=== PATIENT | male | born 1955 | race Caucasian/White ===

== ENCOUNTER 2016-10-25 15:09 | Inpatient (IN) | payer OTHER ==
[~2016-10-25] VITALS: Ht 185.4 cm; Wt 122.7 kg
[2016-10-25 18:00] VITALS: BP 144/74; PULSE 65; RESP 20
[2016-10-25 19:28] VITALS: BP 148/78; RESP 17
[2016-10-25 20:07] VITALS: Ht 185.4 cm; Wt 122.7 kg
[2016-10-25 20:15] VITALS: PULSE 62
[2016-10-25] MEDS ORDERED: HEPARIN 1000 UNITS/ML 10 ML INJ IV PRN (20:30)
[2016-10-25] MEDS: INSULIN ASPART [NOVOLOG] 3 ML PEN SC SCH (21:00)
[2016-10-25] MEDS ORDERED: HYDROCODONE/APAP (5/325) TAB PO PRN (21:30)
[2016-10-25] MEDS ORDERED: GLUCOSE GEL 15 GRAM TUBE BUCCAL PRN (22:00)
[2016-10-25] MEDS ORDERED: GLUCAGON 1 MG INJ IM PRN (22:00)
[2016-10-25] MEDS ORDERED: DEXTROSE 50% 50 ML SYRINGE IV PRN ×2 (22:00)
[2016-10-25] MEDS ORDERED: GLUCOSE GEL 15 GRAM TUBE PO PRN ×2 (22:00)
[2016-10-25 22:02] LABS: ADD SCAN DIFF NO
[2016-10-25 22:04] LABS: BASOPHILS % 0.6 % (0.0-2.0); EOSINOPHILS # 0.2 10^3/ul (0.0-0.5); HEMATOCRIT 42.6 % (42.0-52.0); HEMOGLOBIN 14.5 g/dl (14.0-18.0); LYMPHOCYTES # 1.5 10^3/ul (0.8-2.9); LYMPHOCYTES % 29.8 % (15.0-51.0); MEAN CORPUSCULAR HEMOGLOBIN 28.8 pg (29.0-33.0); MEAN CORPUSCULAR VOLUME 84.5 fl (82.0-101.0); MEAN PLATELET VOLUME 9.1 fl (7.4-10.4); MONOCYTE # 0.4 10^3/ul (0.3-0.9); MONOCYTES % 7.8 % (0.0-11.0); NEUTROPHIL # 2.9 10^3/ul (1.6-7.5); NEUTROPHILS % 58.4 % (39.0-77.0); PLATELET COUNT 189 10^3/UL (140-415); RED BLOOD COUNT 5.04 10^6/ul (4.70-6.10); RED CELL DISTRIBUTION WIDTH 13.2 % (11.5-14.5)
[2016-10-25 22:19] LABS: INR 0.94; PROTIME 12.6 Sec (12.2-14.2)
[2016-10-25 22:20] LABS: MAGNESIUM 2.1 mg/dl (1.7-2.5)
[2016-10-25] MEDS: LISINOPRIL 20 MG TAB PO SCH (22:26)
[2016-10-25] MEDS: FERROUS SULFATE (EC) 325 MG TAB PO SCH (22:26)
[2016-10-25] MEDS: DOCUSATE SODIUM 100 MG CAP PO SCH (22:26)
[2016-10-25 22:33] LABS: TROPONIN-I 0.038 ng/ml (0.00-0.12)
[2016-10-25 22:36] LABS: PARTIAL THROMBOPLASTIN TIME 35.4 Sec (25.0-35.0)
[2016-10-25 22:38] LABS: CK-MB 0.47 ng/ml (0.0-2.4)
[2016-10-25] MEDS: HEPARIN 25000 UNITS/250 ML 250 ML IV SCH (22:42)
[2016-10-25] MEDS ORDERED: ZOLPIDEM 5 MG TAB PO ONE (23:30)
[2016-10-26] VITALS (13 sets, daily range): BP systolic 122–148; BP diastolic 63–77; PULSE 61–85; RESP 17–20
[2016-10-26] MEDS: ACCU-CHEK XX SCH ×2 (02:00)
[2016-10-26] MEDS ORDERED: FERR325T5 PO (05:14)
[2016-10-26] MEDS ORDERED: CARV6.25 PO (05:14)
[2016-10-26] MEDS ORDERED: LISI20TA11 PO (05:14)
[2016-10-26] MEDS ORDERED: ASPI325T32 PO (05:15)
[2016-10-26] MEDS ORDERED: AMLO-145 PO (05:15)
[2016-10-26] MEDS ORDERED: HYDR-3671 PO (05:15)
[2016-10-26] MEDS ORDERED: DOCU-144 PO (05:15)
[2016-10-26] MEDS ORDERED: GLIP5TAB13 PO (05:15)
[2016-10-26] MEDS ORDERED: OMEP20CA16 PO (05:15)
[2016-10-26] MEDS ORDERED: METF850T PO (05:15)
[2016-10-26] MEDS: PANTOPRAZOLE (EC) 40 MG TAB PO SCH (05:53)
[2016-10-26 07:18] LABS: CK-MB 0.45 ng/ml (0.0-2.4); TROPONIN-I 0.034 ng/ml (0.00-0.12)
[2016-10-26] MEDS: HEPARIN 25000 UNITS/250 ML 250 ML IV SCH ×3 (07:26→22:57)
--- NOTE | 2016-10-26 08:06 | CONS ---
Date/Time of Note Date/Time of Note DATE: 10/26/16 TIME: 07:57 Assessment/Plan Assessment/Plan Chief Complaint/Hosp Course NSTEMI/ACS: Presented with chest pain and trops elevated to 0.25 at [facility]. He will need a cardiac cath for evaluation of his coronaries. CAD: Has prior stents from 2009 HTN -continue heparin drip -ASA -add lipitor 40mg -coreg 6.25mg BID -add imdur until after catyh -lisinopril 20mg -amlodipine 5mg -NPO after midnight for cath in am (possibly 7:30) Problems: Consultation Date/Type/Reason Admit Date/Time Oct 25, 2016 at 19:12 Date of Consultation: Oct 26, 2016 Type of Consultation: Cardiology Reason for Consultation NSTEMI Referring Provider: JOSE ALBERTO PATEL MD Hx of Present Illness 61 yo M with a h/o CAD s/p PCI to unknown vessels 2009 (per pt 3 stents, 2 weeks apart), HTN, prior tobacco use (quit 8 yrs ago), who [facility] to [facility] with [facility] 2 nights ago. There he was found to have an NSTEMI with trops peaking at 0.25 and downtrended (have been normal here). The pain started suddenly while he was playing on his computer. The pain was substernal and radiated to his left axilla. He had recurrence of the pain at [facility] but none since being here. He takes ASA without issues and has not had bleeding issues in the past.No SOB, orthopnea, PND, edema. He is agreeable to cardiac cath. per HPI Past Medical History per HPI Social History Smoking Status: Former smoker Exam/Review of Systems Vital Signs Vitals Vital Signs Date Time Temp Pulse Resp B/P Pulse Ox O2 Delivery O2 Flow Rate FiO2 10/26/16 04:56 64 10/26/16 03:45 97.6 17 140/75 99 10/25/16 18:00 Room Air Intake and Output 10/25/16 10/25/16 10/26/16 15:00 23:00 07:00 Intake Total 420 ml Balance 420 ml Exam Constitutional: alert, oriented Psych: no complaints Head: atraumatic, normocephalic Eyes: nl conjunctiva ENMT: nl external ears & nose Neck: jvd (7cm), supple Respiratory: clear to auscultation, No crackles/rales Cardiovascular: regular rate and rhythm, No edema, No systolic murmur Gastrointestinal: non-tender, soft Extremities: normal pulses Neurological: nl mental status, nl speech Results EKG: sinus, anterolateral and inferior TWI (unclear if new or old) Result Diagram: 10/25/16 2141 Results 24 hrs Laboratory Tests Test 10/25/16 20:43 10/25/16 21:47 10/26/16 05:45 Bedside Glucose 116 White Blood Count 5.0 Red Blood Count 5.04 Hemoglobin 14.5 Hematocrit 42.6 Mean Corpuscular Volume 84.5 Mean Corpuscular Hemoglobin 28.8 L Mean Corpuscular Hemoglobin Concent 34.0 Red Cell Distribution Width 13.2 Platelet Count 189 Mean Platelet Volume 9.1 Neutrophils % 58.4 Lymphocytes % 29.8 Monocytes % 7.8 Eosinophils % 3.0 Basophils % 0.6 Nucleated Red Blood Cells % 0.0 Neutrophils # 2.9 Lymphocytes # 1.5 Monocytes # 0.4 Eosinophils # 0.2 Basophils # 0.0 Nucleated Red Blood Cells # 0.0 Prothrombin Time 12.6 Prothrombin Time Ratio 1.0 INR International Normalized Ratio 0.94 Activated Partial Thromboplast Time 35.4 H 35.3 H Magnesium Level 2.1 Creatine Kinase 59 47 Creatine Kinase Index 0.8 1.0 Creatinine Kinase MB (Mass) 0.47 0.45 Troponin I 0.038 0.034 Medications Medications Current Medications Ferrous Sulfate (Ferrous Sulfate (Ec)) 325 mg TID PO Last administered on 22:26; Admin Dose 325 MG; Start 10/25/16 at 21:00 Lisinopril (Zestril) 20 mg BID PO Last administered on 10/25/16 22:26; Admin Dose 20 MG; Start 10/25/16 at 21:00 Carvedilol (Coreg) 6.25 mg BID PO Last administered on 10/25/16 22:26; Admin Dose 6.25 MG; Start 10/25/16 at 21:00 Amlodipine Besylate (Norvasc) 5 mg DAILY PO ; Start 10/26/16 at 09:00 Aspirin (Aspirin) 325 mg DAILY PO ; Start 10/26/16 at 09:00 Docusate Sodium (Colace) 100 mg BID PO Last administered on 10/25/16 22:26; Admin Dose 100 MG; Start 10/25/16 at 21:00 Hydralazine HCl (Apresoline) 25 mg DAILY PO ; Start 10/25/16 at 21:00 Diagnostic Test (Pha) (Accu-Chek) 1 ea 02 XX ; Start 10/26/16 at 02:00 Diagnostic Test (Pha) (Accu-Chek) 1 ea 02 XX ; Start 10/26/16 at 02:00 Acetaminophen/ Hydrocodone Bitart ([place] (5/325)) 1 tab Q6H PRN PO PAIN; Start 10/25/16 at 21:30 Miscellaneous Information 1 ea NOTE XX ; Start 10/25/16 at 22:00 Glucose (Glutose) 15 gm Q15M PRN PO DECREASED GLUCOSE; Start 10/25/16 at 22:00 Glucose (Glutose) 22.5 gm Q15M PRN PO DECREASED GLUCOSE; Start 10/25/16 at 22: 00 Dextrose (D50w Syringe) 25 ml Q15M PRN IV DECREASED GLUCOSE; Start 10/25/16 at 22:00 Dextrose (D50w Syringe) 50 ml Q15M PRN IV DECREASED GLUCOSE; Start 10/25/16 at 22:00 Glucagon (Glucagen) 1 mg Q15M PRN IM DECREASED GLUCOSE; Start 10/25/16 at 22:00 Glucose (Glutose) 15 gm Q15M PRN BUCCAL DECREASED GLUCOSE; Start 10/25/16 at 22 :00 Pantoprazole (Protonix Tab) 40 mg DAILY@06 PO Last administered on 10/26/16 05 :53; Admin Dose 40 MG; Start 10/26/16 at 06:00 Atorvastatin Calcium (Lipitor) 40 mg HS PO ; Start 10/26/16 at 21:00 DAVID SANTOS Oct 26, 2016 08:06
[2016-10-26] MEDS: INSULIN ASPART [NOVOLOG] 3 ML PEN SC SCH ×4 (08:49→21:00)
[2016-10-26] MEDS: DOCUSATE SODIUM 100 MG CAP PO SCH ×2 (08:50→21:11)
[2016-10-26] MEDS: FERROUS SULFATE (EC) 325 MG TAB PO SCH ×3 (08:50→21:11)
[2016-10-26] MEDS: LISINOPRIL 20 MG TAB PO SCH ×2 (08:51→21:00)
[2016-10-26] MEDS: AMLODIPINE 5 MG TAB PO SCH (08:52)
[2016-10-26] MEDS ORDERED: ASPIRIN 325 MG TAB PO SCH (09:00)
[2016-10-26] MEDS ORDERED: ISOSORBIDE MONONITRATE(SR)30 MG TAB PO SCH (09:00)
[2016-10-26] MEDS: ACETAMINOPHEN 325 MG TAB PO PRN ×2 (11:41→20:54)
--- NOTE | 2016-10-26 12:31 | PN ---
Date/Time of Note Date/Time of Note DATE: 10/26/16 TIME: 12:29 Assessment/Plan VTE Prophylaxis VTE Prophylaxis Intervention: heparin Lines/Catheters IV [facility]ter Type [facility] Peripheral IV Urinary Cath still in place: No Assessment/Plan Problems: (1) Non-ST elevation (NSTEMI) myocardial infarction Status: Acute Comment: He was transferred to our facility for receiving cardiac catheterization which is scheduled for the morning. Cardiology will be by today to finalize any the orders and make any the preop/preprocedure arrangements such as holding the heparin drip (2) Essential hypertension Status: Chronic Comment: He is normotensive on aggressive medical intervention (3) Hyperlipidemia Status: Chronic Comment: Full dose statin therapy Qualifiers: Hyperlipidemia type: pure hypercholesterolemia Qualified Code: E78.00 - Pure hypercholesterolemia (4) Status post angioplasty with stent Onset Date: ~ 10/2009 Status: Chronic Comment: Noted in the past. (5) History of tobacco use Status: Chronic Comment: Patient reports he quit smoking several years ago Subjective 24 Hr Interval Summary Free Text/Dictation Patient presently on a heparin drip and without complaints of chest pain shortness of breath palpitations etc. Constitutional: no complaints Respiratory: no complaints Cardiovascular: no complaints Gastrointestinal: no complaints Exam/Review of Systems Vital Signs Vitals Vital Signs Date Time Temp Pulse Resp B/P Pulse Ox O2 Delivery O2 Flow Rate FiO2 10/26/16 12:03 74 10/26/16 12:00 97.7 20 125/69 96 10/25/16 18:00 Room Air Intake and Output 10/25/16 10/25/16 10/26/16 15:00 23:00 07:00 Intake Total 420 ml Balance 420 ml Exam Constitutional: alert, oriented Neck: non-tender, supple Respiratory: clear to auscultation, normal air movement Cardiovascular: nl pulses, regular rate and rhythm Results Result Diagram: 10/25/16 2144 Results 24 hrs Laboratory Tests Test 10/25/16 20:43 10/25/16 21:47 10/26/16 05:45 10/26/16 08:00 Bedside Glucose 116 168 White Blood Count 5.0 Red Blood Count 5.04 Hemoglobin 14.5 Hematocrit 42.6 Mean Corpuscular Volume 84.5 Mean Corpuscular Hemoglobin 28.8 L Mean Corpuscular Hemoglobin Concent 34.0 Red Cell Distribution Width 13.2 Platelet Count 189 Mean Platelet Volume 9.1 Neutrophils % 58.4 Lymphocytes % 29.8 Monocytes % 7.8 Eosinophils % 3.0 Basophils % 0.6 Nucleated Red Blood Cells % 0.0 Neutrophils # 2.9 Lymphocytes # 1.5 Monocytes # 0.4 Eosinophils # 0.2 Basophils # 0.0 Nucleated Red Blood Cells # 0.0 Prothrombin Time 12.6 Prothrombin Time Ratio 1.0 INR International Normalized Ratio 0.94 Activated Partial Thromboplast Time 35.4 H 35.3 H Magnesium Level 2.1 Creatine Kinase 59 47 Creatine Kinase Index 0.8 1.0 Creatinine Kinase MB (Mass) 0.47 0.45 Troponin I 0.038 0.034 Test 10/26/16 12:01 Bedside Glucose 161 Medications Medications Current Medications Ferrous Sulfate (Ferrous Sulfate (Ec)) 325 mg TID PO Last administered on 08:50; Admin Dose 325 MG; Start 10/25/16 at 21:00 Lisinopril (Zestril) 20 mg BID PO Last administered on 10/26/16 08:51; Admin Dose 20 MG; Start 10/25/16 at 21:00 Carvedilol (Coreg) 6.25 mg BID PO Last administered on 10/25/16 22:26; Admin Dose 6.25 MG; Start 10/25/16 at 21:00 Amlodipine Besylate (Norvasc) 5 mg DAILY PO Last administered on 10/26/16 08: 52; Admin Dose 5 MG; Start 10/26/16 at 09:00 Aspirin (Aspirin) 325 mg DAILY PO Last administered on 10/26/16 08:49; Admin Dose 325 MG; Start 10/26/16 at 09:00 Docusate Sodium (Colace) 100 mg BID PO Last administered on 10/26/16 08:50; Admin Dose 100 MG; Start 10/25/16 at 21:00 Hydralazine HCl (Apresoline) 25 mg DAILY PO Last administered on 10/26/16 08: 52; Admin Dose 25 MG; Start 10/25/16 at 21:00 Diagnostic Test (Pha) (Accu-Chek) 1 ea 02 XX ; Start 10/26/16 at 02:00 Diagnostic Test (Pha) (Accu-Chek) 1 ea 02 XX ; Start 10/26/16 at 02:00 Acetaminophen/ Hydrocodone Bitart ([place] (5/325)) 1 tab Q6H PRN PO PAIN; Start 10/25/16 at 21:30 Miscellaneous Information 1 ea NOTE XX ; Start 10/25/16 at 22:00 Glucose (Glutose) 15 gm Q15M PRN PO DECREASED GLUCOSE; Start 10/25/16 at 22:00 Glucose (Glutose) 22.5 gm Q15M PRN PO DECREASED GLUCOSE; Start 10/25/16 at 22: 00 Dextrose (D50w Syringe) 25 ml Q15M PRN IV DECREASED GLUCOSE; Start 10/25/16 at 22:00 Dextrose (D50w Syringe) 50 ml Q15M PRN IV DECREASED GLUCOSE; Start 10/25/16 at 22:00 Glucagon (Glucagen) 1 mg Q15M PRN IM DECREASED GLUCOSE; Start 10/25/16 at 22:00 Glucose (Glutose) 15 gm Q15M PRN BUCCAL DECREASED GLUCOSE; Start 10/25/16 at 22 :00 Pantoprazole (Protonix Tab) 40 mg DAILY@06 PO Last administered on 10/26/16 05 :53; Admin Dose 40 MG; Start 10/26/16 at 06:00 Atorvastatin Calcium (Lipitor) 40 mg HS PO ; Start 10/26/16 at 21:00 Isosorbide Mononitrate (Imdur) 30 mg DAILY PO Last administered on 10/26/16 08 :50; Admin Dose 30 MG; Start 10/26/16 at 09:00 Acetaminophen (Tylenol Tab) 650 mg Q6H PRN PO PAIN AND OR ELEVATED TEMP Last administered on 10/26/16 11:41; Admin Dose 650 MG; Start 10/26/16 at 11:30 MARIA ANTONIA HERNÁNDEZ MD Oct 26, 2016 12:31
[2016-10-26 15:04] LABS: CREATINE KINASE 48 IU/L (23-200)
[2016-10-26 15:26] LABS: CK-MB 0.44 ng/ml (0.0-2.4); TROPONIN-I < 0.012 ng/ml (0.00-0.12)
[2016-10-26] MEDS: ATORVASTATIN 40 MG TAB PO SCH (21:11)
[2016-10-26] MEDS: ZOLPIDEM 5 MG TAB PO PRN (22:48)
[2016-10-27] VITALS (58 sets, daily range): BP systolic 133–182; BP diastolic 66–93; PULSE 56–76; RESP 11–29
[2016-10-27] MEDS: ACCU-CHEK XX SCH ×2 (02:00)
[2016-10-27] MEDS: PANTOPRAZOLE (EC) 40 MG TAB PO SCH (06:00)
[2016-10-27] MEDS: HEPARIN 25000 UNITS/250 ML 250 ML IV SCH (07:45)
[2016-10-27] MEDS: INSULIN ASPART [NOVOLOG] 3 ML PEN SC SCH ×4 (08:00→21:00)
--- NOTE | 2016-10-27 08:12 | RADRPT ---
Echocardiogram Report Patient Name: SARIAH ROJAS Gender: Male Date: 1955 Study Date: 26-Oct-2016 Orthopaedic Doctor: [facility] Location: [id number] Ref. Physician: DAVID ANDERSON Quality: Adequate Procedures: Transthoracic echocardiogram with complete 2D, M-Mode, and doppler examination. Indications: NSTEMI. 2D/M Mode Doppler Measurement Value Normal Ranges Measurement Value Normal Ranges LVIDd 2D 5.0 3.5 - 5.6 cm AV Peak Joshua 1.5 m/sec LVIDs 2D 3.3 2.1 - 4.1 cm AV Peak PG 8.9 mmHg LVPWd 2D 1.2 0.6 - 1.1 cm AI Peak PG 40.1 mmHg IVSd 2D 1.2 0.6 - 1.1 cm AI Peak Joshua 3.2 m/sec AoR Diam 2D 3.0 2.0 - 3.7 cm AI PHT 921.6 msec EDV 2D 119.8 cm3 LVOT Peak Joshua 0.8 m/sec ESV 2D 37.1 cm3 LVOT Peak PG 2.3 mmHg LA Dimen 2D 3.9 2.3 - 4.0 cm MV E Peak Joshua 0.6 m/sec MV A Peak Joshua 0.5 m/sec MV E/A 1.1 MV Decel Time 255 msec MV Decel [place] 2 MV E/A 1.1 Findings Left Ventricle: Normal left ventricular systolic function. Normal left ventricular cavity size. Mild concentric left ventricular hypertrophy. Ejection fraction is visually estimated at 55 %. Tissue Doppler/Mitral Doppler indices are within normal limits. Resting Segmental Wall Motion Analysis: Mild hypokinesis of the anterior wall. Right Ventricle: Normal right ventricular size. Normal right ventricular systolic function. Left Atrium: The left atrium is normal in size. Right Atrium: The right atrium is normal in size. Mitral Valve: Normal appearance and function of the mitral valve with trace physiologic regurgitation. Aortic Valve: Aortic sclerosis without stenosis. Mild aortic valve regurgitation. Tricuspid Valve: Normal appearance of the tricuspid valve. Unable to obtain RVSP due to minimal presence of tricuspid regurgitation. Pericardium: Trivial pericardial effusion. Aorta: Normal aortic root. IVC: Normal size and normal respiratory collapse consistent with normal right atrial pressure. Conclusions 1.Normal left ventricular systolic function. Normal left ventricular cavity size. Mild concentric left ventricular hypertrophy. Ejection fraction is visually estimated at 55 %. Tissue Doppler/Mitral Doppler indices are within normal limits. Mild hypokinesis of the anterior wall. 2.Aortic sclerosis without stenosis. Mild aortic valve regurgitation. 3.Unable to obtain RVSP due to minimal presence of tricuspid regurgitation. RA pressure estimated to be 3 mmHg. Electronically Signed By: David Anderson 27-Oct-2016 08:12:07 0700 Patient Name: SARIAH ROJAS Study Date: 26-Oct-2016 [id number]
[2016-10-27 08:36] LABS: ALBUMIN 4.3 g/dl (3.3-4.9); ALBUMIN/GLOBULIN RATIO 1.95; BILIRUBIN,INDIRECT 0.5 mg/dl (0-1.1); BILIRUBIN,TOTAL 0.5 mg/dl (0.2-1.3); CALCIUM 8.8 mg/dl (8.4-10.2); CREATININE 1.03 mg/dl (0.61-1.24); POTASSIUM 3.9 mmol/L (3.5-5.1); TOTAL PROTEIN 6.5 g/dl (6.1-8.1)
[2016-10-27] MEDS ORDERED: VERAPAMIL 5 MG INJ ONE (08:36)
[2016-10-27] MEDS ORDERED: IODIXANOL LOCM 100 ML BTL ONE ×3 (08:36→10:01)
[2016-10-27] MEDS ORDERED: LIDOCAINE 1% (MDV) 20 ML INJ ONE (08:36)
[2016-10-27] MEDS ORDERED: NITROGLYCERIN (IC) 100 MCG/ML INJ ONE (08:37)
[2016-10-27] MEDS ORDERED: HEPARIN 1000 UNITS/ML 10 ML INJ ONE ×2 (08:37→10:07)
[2016-10-27] MEDS ORDERED: FENTAnyl 50 MCG/ML VIAL ONE (08:40)
[2016-10-27] MEDS ORDERED: SOD CHLORIDE 0.9% 500 ML ONE ×2 (08:40→10:07)
[2016-10-27] MEDS ORDERED: MIDAZOLAM 1 MG/ML 2 ML INJ ONE (08:40)
--- NOTE | 2016-10-27 08:40 | CONS ---
Date/Time of Note Date/Time of Note DATE: 10/27/16 TIME: 08:38 Assessment/Plan Assessment/Plan Chief Complaint/Hosp Course NSTEMI/ACS: Presented with chest pain and trops elevated to 0.25 at [facility]. He will need a cardiac cath for evaluation of his coronaries. CAD: Has prior stents from 2009 HTN -cath this am -ASA -lipitor 40mg -coreg 6.25mg BID -imdur until after cath -lisinopril 20mg -amlodipine 5mg Problems: Consultation Date/Type/Reason Admit Date/Time Oct 25, 2016 at 19:12 Initial Consult Date 10/26/16 Type of Consultation: Cardiology Referring Provider: JOSE ALBERTO PATEL MD 24 HR Interval Summary Free Text/Dictation No o/n events. No further chest pain. Exam/Review of Systems Vital Signs Vitals Vital Signs Date Time Temp Pulse Resp B/P Pulse Ox O2 Delivery O2 Flow Rate FiO2 10/27/16 08:13 76 10/27/16 03:08 98.1 20 145/76 95 10/25/16 18:00 Room Air Intake and Output 10/26/16 10/26/16 10/27/16 15:00 23:00 07:00 Intake Total 1200 ml 530 ml Output Total 215 ml 650 ml Balance 985 ml -120 ml Exam Constitutional: alert, oriented Psych: no complaints Head: atraumatic, normocephalic Neck: jvd (7cm) Respiratory: clear to auscultation, No crackles/rales Cardiovascular: edema (trace), regular rate and rhythm, systolic murmur (2/6 SANDRA) Gastrointestinal: non-tender, soft Neurological: nl mental status, nl speech, nl strength Results Result Diagram: 10/25/16 2147 Results 24 hrs Laboratory Tests Test 10/26/16 12:01 10/26/16 14:10 10/26/16 16:04 10/26/16 17:16 Bedside Glucose 161 139 Creatine Kinase 48 Creatine Kinase Index 0.9 Creatinine Kinase MB (Mass) 0.44 Troponin I < 0.012 Thyroid Stimulating Hormone (TSH) 1.800 Hepatitis B Surface Antigen NEGATIVE Hepatitis C Antibody REACTIVE H Activated Partial Thromboplast Time 59.8 H Test 10/26/16 21:09 10/26/16 22:10 10/27/16 07:15 Bedside Glucose 155 Activated Partial Thromboplast Time 54.7 H 74.4 *H Medications Medications Current Medications Ferrous Sulfate (Ferrous Sulfate (Ec)) 325 mg TID PO Last administered on 21:11; Admin Dose 325 MG; Start 10/25/16 at 21:00 Lisinopril (Zestril) 20 mg BID PO Last administered on 10/26/16 08:51; Admin Dose 20 MG; Start 10/25/16 at 21:00 Carvedilol (Coreg) 6.25 mg BID PO Last administered on 10/26/16 21:11; Admin Dose 6.25 MG; Start 10/25/16 at 21:00 Amlodipine Besylate (Norvasc) 5 mg DAILY PO Last administered on 10/26/16 08: 52; Admin Dose 5 MG; Start 10/26/16 at 09:00 Aspirin (Aspirin) 325 mg DAILY PO Last administered on 10/26/16 08:49; Admin Dose 325 MG; Start 10/26/16 at 09:00 Docusate Sodium (Colace) 100 mg BID PO Last administered on 10/26/16 21:11; Admin Dose 100 MG; Start 10/25/16 at 21:00 Hydralazine HCl (Apresoline) 25 mg DAILY PO Last administered on 10/26/16 08: 52; Admin Dose 25 MG; Start 10/25/16 at 21:00 Diagnostic Test (Pha) (Accu-Chek) 1 ea 02 XX ; Start 10/26/16 at 02:00 Diagnostic Test (Pha) (Accu-Chek) 1 ea 02 XX ; Start 10/26/16 at 02:00 Acetaminophen/ Hydrocodone Bitart ([place] (5/325)) 1 tab Q6H PRN PO PAIN; Start 10/25/16 at 21:30 Miscellaneous Information 1 ea NOTE XX ; Start 10/25/16 at 22:00 Glucose (Glutose) 15 gm Q15M PRN PO DECREASED GLUCOSE; Start 10/25/16 at 22:00 Glucose (Glutose) 22.5 gm Q15M PRN PO DECREASED GLUCOSE; Start 10/25/16 at 22: 00 Dextrose (D50w Syringe) 25 ml Q15M PRN IV DECREASED GLUCOSE; Start 10/25/16 at 22:00 Dextrose (D50w Syringe) 50 ml Q15M PRN IV DECREASED GLUCOSE; Start 10/25/16 at 22:00 Glucagon (Glucagen) 1 mg Q15M PRN IM DECREASED GLUCOSE; Start 10/25/16 at 22:00 Glucose (Glutose) 15 gm Q15M PRN BUCCAL DECREASED GLUCOSE; Start 10/25/16 at 22 :00 Pantoprazole (Protonix Tab) 40 mg DAILY@06 PO Last administered on 10/26/16 05 :53; Admin Dose 40 MG; Start 10/26/16 at 06:00 Atorvastatin Calcium (Lipitor) 40 mg HS PO Last administered on 10/26/16 21:11 ; Admin Dose 40 MG; Start 10/26/16 at 21:00 Isosorbide Mononitrate (Imdur) 30 mg DAILY PO Last administered on 10/26/16 08 :50; Admin Dose 30 MG; Start 10/26/16 at 09:00 Acetaminophen (Tylenol Tab) 650 mg Q6H PRN PO PAIN AND OR ELEVATED TEMP Last administered on 10/26/16 20:54; Admin Dose 650 MG; Start 10/26/16 at 11:30 Zolpidem Tartrate (Ambien) 10 mg HS PRN PO INSOMNIA Last administered on 22:48; Admin Dose 10 MG; Start 10/26/16 at 21:30 DAVID SANTOS Oct 27, 2016 08:39
[2016-10-27] MEDS ORDERED: IOHEXOL 350MG/ML 50 ML BTL ONE (09:27)
[2016-10-27] MEDS ORDERED: BIVALIRUDIN 250MG /NS 50 ML 50 ML IVPB ONE ×2 (09:27→10:08)
[2016-10-27] MEDS ORDERED: TICAGRELOR 90 MG TABLET ONE (09:27)
[2016-10-27] MEDS ORDERED: ASPIRIN 81 MG TAB ONE (10:25)
[2016-10-27] MEDS ORDERED: SOD CHLORIDE 0.9% 1,000 ML IV SCH (10:32)
--- NOTE | 2016-10-27 10:53 | OPR ---
Date/Time of Note Date/Time of Note DATE: 10/27/16 TIME: 10:33 Operative Report Free Text/Dictation Procedure Date: 10/27/2016 Procedures Performed: 1)Left heart catheterization with selective left and right coronary angiography. 2)Balloon angioplasty and stenting of the mid LAD with a Synergy 2.5 x 16 drug eluting stent. 2)Balloon angioplasty and stenting of the prox Diag with a Resolute 2.25 x 14 drug eluting stent. Pre-operative Diagnosis:NSTEMI, CAD Post-operative Diagnosis:NSTEMI, CAD, s/p PCI of LAD and diag Indications: Description of Procedure: After informed consent, the patient was brought to the cardiac catheterization lab. The procedure site was prepped and draped in usual manner. The patient was premedicated with versed 1mg and fentanyl 50 mcg. 2 mL lidocaine was injected into the right wrist. Next using the posterior wall technique, the 6/ 5 cook islander sheath was inserted into the right radial artery. Next using the JL3.5 and [place], selective angiography of the left and right coronary arteries were obtained. Hemodynamics were obtained with the JR catheter. The decision was made to proceed with PCI of the LAD and diag. A 6 cook islander XBLAD 3.5 guide was advanced and engaged into the left coronary artery. After appropriate anticoagulation and antiplatelets were given, the BMW angioplasty wire was advanced past the LAD lesion. Next another BMW wire was used to advance into the diagonal branch. Next the 2.0 X 12 balloon was used to dilate the LAD lesion times 2 at a maximum of 10 david. Next an attempt was made to cross a BMW into the small subbranch of the diag with the hope to POBA but after a brief unsuccessful attempt, the decision was made not to (as it was a 1.5mm vessel and could not be stented if dissection occurred). Next the 2.0 X 12 balloon was used to dilate the prox Diag lesion times 2 at a maximum of 8 david. Subsequently, the Resolute 2.25 x 14 drug eluting stent was advanced to the lesion and deployed at nominal pressure. Subsequently, the Synergy 2.5 x 16 drug eluting stent was advanced to the LAD lesion and deployed at 12 david. Next the LAD stent was post dilated with the 2.75 X 8 noncompliant balloon times 4 at a maximum of 16 david. Final angiography revealed MAXINE 3 flow, no edge dissection, and appropriate stent expansion of both stents. The subbranch of the diagonal had appropriate flow and the pt was asymptomatic so it was not intervened upon. Next all equipment was removed and hemostasis was achieved by TR band. Findings: Anatomy/Hemodynamics: Left main:normal LAD:mid stent with 99% ISR Diagonal 1: medium caliber bifurcating vessel with ostial 40% followed by prox 80%, subbranch of the diagonal is ~1.5mm and has an ostial long 99% lesion Circumflex: normal Obtuse marginal: large trifurcating vessel with prox patent stent, very distal subbranch is 1.5mm and has an ostial 80% lesion RCA: prox long 40% PDA: luminal irregularities PLV: luminal irregularities LV angiography:not done LV-Ao: no gradient LVEDP: 15 mmHg Contrast used:280mL Fluoroscopy time:21 min Medications used: Versed 1mg Fentanyl 125mcg Equipment used: 6 cook islander XB LAD 3.5 guide BMW angioplasty wire x 2 2 x 12 balloon Synergy 2.5 x 16 drug eluting stent (mid LAD) Resolute 2.25 x 14 drug eluting stent (prox Diag) 2.75 x 8 noncompliant balloon Assessment: NSTEMI Two vessel severe CAD of the mid LAD (in-stent restenosis) and prox Diag s/p KELY to both Small vessel CAD of subbranches of the Diagonal and OM branches Plan: -observe overnight in ICU -d/c home tomorrow if normal clinical course -ASA 81mg indefinitely -ticagrelor 90mg BID for at least 1 year -continue statin, beta denys, ACEI -f/u 1-2 weeks DAVID SANTOS Oct 27, 2016 10:47
[2016-10-27] MEDS ORDERED: ONDANSETRON 4 MG INJ IV PRN (11:00)
[2016-10-27] MEDS ORDERED: morphine 2 MG INJ IV PRN (11:00)
[2016-10-27] MEDS: ACETAMINOPHEN 325 MG TAB PO PRN ×2 (11:16→23:10)
[2016-10-27] MEDS: AMLODIPINE 5 MG TAB PO SCH (13:05)
[2016-10-27] MEDS: FERROUS SULFATE (EC) 325 MG TAB PO SCH ×3 (13:05→21:02)
[2016-10-27] MEDS: LISINOPRIL 20 MG TAB PO SCH ×2 (13:05→21:02)
[2016-10-27] MEDS: DOCUSATE SODIUM 100 MG CAP PO SCH ×2 (13:06→21:02)
--- NOTE | 2016-10-27 18:33 | PN ---
Date/Time of Note Date/Time of Note DATE: 10/27/16 TIME: 18:30 Assessment/Plan VTE Prophylaxis VTE Prophylaxis Intervention: SCD's Lines/Catheters IV Catheter Type (from [facility]): Peripheral IV Urinary Cath still in place: No Assessment/Plan Chief Complaint/Hosp Course Assessment and plan 1. Non-ST elevated myocardial infarction. Patient status post heart catheterization with noted 2 vessel disease status post stent in LAD and proximal diagonal. Continue on aspirin and Brilinta. Continue on statin medication. Monitor on telemetry for now. 2. Essential hypertension. Continue antihypertensives and adjust as needed 3. Dyslipidemia. Continue on statin medication 4. History of tobacco use. Cessation was advised. Disposition and plan: Continue on Brilinta and aspirin. Monitor on telemetry for now. Anticipate discharge within the next 24 hours. Will follow up with fuel cell engineer. Discussed plan of care with Dr. Ramey Problems: Subjective 24 Hr Interval Summary Free Text/Dictation Reports having little chest discomfort at this time Exam/Review of Systems Vital Signs Vitals Vital Signs Date Time Temp Pulse Resp B/P Pulse Ox O2 Delivery O2 Flow Rate FiO2 10/27/16 17:03 64 22 144/81 97 Room Air Nasal Cannula 10/27/16 10:53 98.6 Intake and Output 10/26/16 10/26/16 10/27/16 15:00 23:00 07:00 Intake Total 1200 ml 530 ml Output Total 215 ml 650 ml Balance 985 ml -120 ml Exam Constitutional: alert, obese, oriented Psych: no complaints Head: normocephalic Eyes: nl conjunctiva Neck: supple, No jvd Respiratory: clear to auscultation, normal air movement Cardiovascular: other Gastrointestinal: non-tender (Regular rate), soft Musculoskeletal: nl extremities to inspection Extremities: normal pulses Neurological: RESPIRATORY CARE FACULTY II-XII intact, nl mental status, nl speech Skin: nl turgor Results Result Diagram: 10/25/16 2147 10/27/16 0715 Results 24 hrs Laboratory Tests Test 10/26/16 21:09 10/26/16 22:10 10/27/16 07:15 10/27/16 10:56 Bedside Glucose 155 178 Activated Partial Thromboplast Time 54.7 H 74.4 *H Sodium Level 136 Potassium Level 3.9 Chloride Level 102 Carbon Dioxide Level 25 Anion Gap 13 Blood Urea Nitrogen 16 Creatinine 1.03 Glucose Level 151 Calcium Level 8.8 Total Bilirubin 0.5 Direct Bilirubin 0.00 Indirect Bilirubin 0.5 Aspartate Amino Transf (AST/SGOT) 22 Alanine Aminotransferase (ALT/SGPT) 50 Alkaline Phosphatase 60 Total Protein 6.5 Albumin 4.3 Globulin 2.20 Albumin/Globulin Ratio 1.95 Test 10/27/16 16:10 Bedside Glucose 161 Medications Medications Current Medications Ferrous Sulfate (Ferrous Sulfate (Ec)) 325 mg TID PO Last administered on 13:11; Admin Dose 325 MG; Start 10/25/16 at 21:00 Lisinopril (Zestril) 20 mg BID PO Last administered on 10/27/16 13:05; Admin Dose 20 MG; Start 10/25/16 at 21:00 Carvedilol (Coreg) 6.25 mg BID PO Last administered on 10/27/16 13:05; Admin Dose 6.25 MG; Start 10/25/16 at 21:00 Amlodipine Besylate (Norvasc) 5 mg DAILY PO Last administered on 10/27/16 13: 05; Admin Dose 5 MG; Start 10/26/16 at 09:00 Docusate Sodium (Colace) 100 mg BID PO Last administered on 10/26/16 21:11; Admin Dose 100 MG; Start 10/25/16 at 21:00 Hydralazine HCl (Apresoline) 25 mg DAILY PO Last administered on 10/27/16 13: 06; Admin Dose 25 MG; Start 10/25/16 at 21:00 Diagnostic Test (Pha) (Accu-Chek) 1 ea 02 XX ; Start 10/26/16 at 02:00 Diagnostic Test (Pha) (Accu-Chek) 1 ea 02 XX ; Start 10/26/16 at 02:00 Acetaminophen/ Hydrocodone Bitart (Zalma (5/325)) 1 tab Q6H PRN PO PAIN; Start 10/25/16 at 21:30 Miscellaneous Information 1 ea NOTE XX ; Start 10/25/16 at 22:00 Glucose (Glutose) 15 gm Q15M PRN PO DECREASED GLUCOSE; Start 10/25/16 at 22:00 Glucose (Glutose) 22.5 gm Q15M PRN PO DECREASED GLUCOSE; Start 10/25/16 at 22: 00 Dextrose (D50w Syringe) 25 ml Q15M PRN IV DECREASED GLUCOSE; Start 10/25/16 at 22:00 Dextrose (D50w Syringe) 50 ml Q15M PRN IV DECREASED GLUCOSE; Start 10/25/16 at 22:00 Glucagon (Glucagen) 1 mg Q15M PRN IM DECREASED GLUCOSE; Start 10/25/16 at 22:00 Glucose (Glutose) 15 gm Q15M PRN BUCCAL DECREASED GLUCOSE; Start 10/25/16 at 22 :00 Pantoprazole (Protonix Tab) 40 mg DAILY@06 PO Last administered on 10/26/16 05 :53; Admin Dose 40 MG; Start 10/26/16 at 06:00 Atorvastatin Calcium (Lipitor) 40 mg HS PO Last administered on 10/26/16 21:11 ; Admin Dose 40 MG; Start 10/26/16 at 21:00 Acetaminophen (Tylenol Tab) 650 mg Q6H PRN PO PAIN AND OR ELEVATED TEMP Last administered on 10/27/16 11:16; Admin Dose 650 MG; Start 10/26/16 at 11:30 Zolpidem Tartrate (Ambien) 10 mg HS PRN PO INSOMNIA Last administered on 22:48; Admin Dose 10 MG; Start 10/26/16 at 21:30 Morphine Sulfate (morphine) 2 mg Q2H PRN IV FOR NON CARDIAC PAIN (4-10) Last administered on 10/27/16 11:17; Admin Dose 2 MG; Start 10/27/16 at 11:00 Ondansetron HCl (Zofran Inj) 4 mg Q4H PRN IV NAUSEA AND/OR VOMITING; Start at 11:00 Aspirin (Aspirin) 81 mg DAILY PO ; Start 10/28/16 at 09:00 Ticagrelor (Brilinta) 90 mg BID PO ; Start 10/27/16 at 21:00 RAMIN GONZALEZ Oct 27, 2016 18:33
[2016-10-27] MEDS: ATORVASTATIN 40 MG TAB PO SCH (21:02)
[2016-10-27] MEDS: TICAGRELOR 90 MG TABLET PO SCH (21:05)
[2016-10-27] MEDS: ZOLPIDEM 5 MG TAB PO PRN (23:00)
[2016-10-28] VITALS (8 sets, daily range): BP systolic 128–166; BP diastolic 74–84; PULSE 63–72; RESP 16–18
[2016-10-28] MEDS: ACCU-CHEK XX SCH ×2 (02:00)
[2016-10-28] MEDS: PANTOPRAZOLE (EC) 40 MG TAB PO SCH (06:37)
[2016-10-28] MEDS: DOCUSATE SODIUM 100 MG CAP PO SCH (08:22)
[2016-10-28] MEDS: FERROUS SULFATE (EC) 325 MG TAB PO SCH ×2 (08:22→12:02)
[2016-10-28] MEDS: LISINOPRIL 20 MG TAB PO SCH (08:23)
[2016-10-28] MEDS: AMLODIPINE 5 MG TAB PO SCH (08:23)
[2016-10-28] MEDS: TICAGRELOR 90 MG TABLET PO SCH (08:43)
[2016-10-28] MEDS: INSULIN ASPART [NOVOLOG] 3 ML PEN SC SCH ×2 (08:44→12:22)
[2016-10-28] MEDS ORDERED: ASPIRIN 81 MG TAB PO SCH (09:00)
[2016-10-28] MEDS ORDERED: ATOR40TA68 PO (09:51)
[2016-10-28] MEDS ORDERED: LISI20TA11 PO (09:51)
[2016-10-28] MEDS ORDERED: HYDR-3671 PO (09:51)
[2016-10-28] MEDS ORDERED: CARV6.25 PO (09:51)
[2016-10-28] MEDS ORDERED: ASPI81TA3 PO (09:51)
[2016-10-28] MEDS ORDERED: FER325 PO (09:51)
[2016-10-28] MEDS ORDERED: TICA90TA PO (09:51)
--- NOTE | 2016-10-28 09:53 | PDOCDIS ---
Discharge Instructions DIAGNOSIS Discharge Diagnosis: 1. Myocardial infarction 2. Dyslipidemia 3. Tobacco use CONDITION Patient Condition: Stable HOME CARE INSTRUCTIONS: Special Diet: LOW FAT LOW CHOLESTEROL FOLLOW UP/APPOINTMENTS Appointments 1. Follow-up with your primary care provider within a week 2. Follow-up with Dr.Vahan Anderson in 1 week RAMIN GONZALEZ Oct 28, 2016 09:53
--- NOTE | 2016-10-28 13:59 | RADRPT ---
Vent Rate: 62 bpm RR Interval: 0 msec CA Interval: 226 msec QRS Duration: 116 msec QT Interval: 444 msec QTC Interval: 450 msec P-R-T [place]: 48 - 63 - -83 degrees Sinus rhythm with 1st degree AV block ST amp; T wave abnormality, consider inferior ischemia ST amp; T wave abnormality, consider anterolateral ischemia Abnormal ECG Electronically Signed By: Madhu Rodriguez [id number]
--- NOTE | 2016-10-28 15:49 | DS ---
Date/Time of Note Date/Time of Note DATE: 10/28/16 TIME: 15:45 Discharge Summary Admission/Discharge Info Admit Date/Time Oct 25, 2016 at 19:12 Discharge Date/Time Final Diagnosis 1. Non-ST elevated myocardial infarction. 2. Essential hypertension. 3. Dyslipidemia. 4. History of tobacco use. Patient Condition: Stable [facility]ults [facility] Course This is a 61-year-old male with history of hypertension dyslipidemia and diabetes [facility] due to reports of chest pain for 1 day duration. Patient did report pain started at 9:30 PM in the middle and left side of his chest. He had some shortness of breath associated with it. He did go to [facility] and was seen by data entry clerk. Patient was found to have non-ST elevated myocardial infarction. He did undergo cardiac catheterization by data entry clerk and did have stent placed to LAD as well as proximal diagonal. He was noted with coronary artery disease. He is also seen with two-vessel severe coronary artery disease. Patient was optimized with aspirin as well as Brilinta and beta-denys and JENNIFER inhibitor. During his course of stay he did improve. He was resumed on statin medication for dyslipidemia and advised for cigarette smoking cessation. Is also continued on antihypertensives for his hypertension. During his course of stay he did improve. He was instructed to follow-up with data entry clerk within a week. The plan of care was discussed with the patient and patient did verbalizes understanding. On the day of discharge patient was in stable condition Discussed plan of care with Dr. Ramey [facility] Active Scripts Lisinopril* (Lisinopril*) 20 Mg Tablet, 20 MG PO BID for 30 Days, TAB Prov:REGIDORRAMIN 10/28/16 Ticagrelor* (Brilinta*) 90 Mg Tablet, 90 MG PO BID for 90 Days, TAB Prov:REGIDORRAMIN 10/28/16 Hydralazine Hcl* (Hydralazine Hcl*) 25 Mg Tab, 25 MG PO DAILY for 30 Days, TAB Prov:REGIDORRAMIN 10/28/16 Ferrous Sulfate* (Ferrous Sulfate*) 325 Mg Tabec, 325 MG PO TID for 30 Days, TAB Prov:REGIDORRAMIN 10/28/16 Atorvastatin* (Atorvastatin*) 40 Mg Tablet, 40 MG PO HS for 30 Days, TAB Prov:RAMIN GONZALEZ 10/28/16 Aspirin (Aspirin) 81 Mg Chew, 81 MG PO DAILY for 90 Days, TAB Prov:RAMIN GONZALEZ 10/28/16 Carvedilol* (Coreg*) 6.25 Mg Tablet, 6.25 MG PO BID, #60 TAB Prov:ALEXANDROALISASJRAMIN 10/28/16 Reported Medications Glipizide* (Glipizide*) 5 Mg Tablet, 5 MG PO DAILY, TAB 10/26/16 Metformin Hcl* (Metformin Hcl*) 850 Mg Tablet, 850 MG PO WITH BREAKFAST DINNE, TAB 10/26/16 Omeprazole* (Omeprazole*) 20 Mg Capsule.dr, 20 MG PO DAILY 10/26/16 Docusate Sodium* (Colace*) 100 Mg Capsule, 100 MG PO BID 10/26/16 Amlodipine Besylate* (Amlodipine Besylate*) 5 Mg Tablet, 5 MG PO DAILY, #30 TAB 10/26/16 Discontinued Reported Medications Hydralazine Hcl* (Hydralazine Hcl*) 25 Mg Tab, 25 MG PO DAILY, #120 TAB 10/26/16 Aspirin (Aspirin) 325 Mg Tablet.dr, 325 MG PO DAILY 10/26/16 Ferrous Sulfate (Ferrous Sulfate) 325 Mg Tablet.dr, 325 MG PO TID 10/26/16 Lisinopril* (Lisinopril*) 20 Mg Tablet, 20 MG PO BID, #30 TAB 10/26/16 Follow-up Plan CONDITION Patient Condition: Stable HOME CARE INSTRUCTIONS: Special Diet: LOW FAT LOW CHOLESTEROL FOLLOW UP/APPOINTMENTS Appointments 1. Follow-up with your primary care provider within a week 2. Follow-up with Dr.Vahan Anderson in 1 week Primary Care Provider Skye Grover Pending Labs Laboratory Tests Test 10/27/16 16:10 10/27/16 20:41 10/28/16 08:21 10/28/16 12:04 Bedside Glucose 161mg/dL (70-220) 160mg/dL (70-220) 148mg/dL (70-220) 204mg/dL (70-220) RAMIN GONZALEZ Oct 28, 2016 15:49
--- NOTE | 2016-10-31 10:09 | RADRPT ---
Vent Rate: 59 bpm RR Interval: 0 msec LA Interval: 234 msec QRS Duration: 112 msec QT Interval: 460 msec QTC Interval: 455 msec P-R-T [place]: 52 - 54 - -84 degrees Sinus bradycardia with 1st degree AV block ST amp; T wave abnormality, consider inferior ischemia ST amp; T wave abnormality, consider anterolateral ischemia Abnormal ECG Electronically Signed By: Rah Kulkarni [id number]
== END 2016-10-28 14:40 | disposition home or self-care (01) | DRG 247 ==
LOC: MS4 19:12
PROVIDERS: ADMIT Internal Medicine; ATTEND Internal Medicine
PROC: B2011ZZ Plain Radiography of Multiple Coronary Arteries using Low Osmolar Contrast (ICD-10-PCS; 2016-10-27)
PROC: 027135Z Dilation of Coronary Artery, Two Arteries with Two Drug-eluting Intraluminal Devices, Percutaneous Approach (ICD-10-PCS; principal; 2016-10-27 10:30)
PROC: 4A023N7 Measurement of Cardiac Sampling and Pressure, Left Heart, Percutaneous Approach (ICD-10-PCS; 2016-10-27 10:30)
DX: I21.4 Non-ST elevation (NSTEMI) myocardial infarction (principal); T82.855A Stenosis of coronary artery stent, initial encounter; I10 Essential (primary) hypertension; I25.10 Atherosclerotic heart disease of native coronary artery without angina pectoris; E78.5 Hyperlipidemia, unspecified; Z87.891 Personal history of nicotine dependence
CPT/HCPCS: 80053; 82550; 82553; 82962; 83735; 84443; 84484; 85025; 85610; 85730; 86803; 87340; 93005; 93306; 93458; C1725; C1769; C1874; C1876; C1887; C9600; C9601; J0583; J1644; J1815; J2250; J2270; J3010; J7030; J7040; Q9967

== ENCOUNTER 2017-03-14 10:07 | Emergency (ER) | payer OTHER ==
[~2017-03-14] VITALS: Ht 157.5 cm; Wt 124.8 kg
[~2017-03-14 10:07] MED LIST: AMLO-145 PO; ASPI81TA3 PO; ATOR40TA68 PO; CARV6.25 PO; DOCU-144 PO; FER325 PO; GLIP5TAB13 PO; HYDR-3671 PO; LISI20TA11 PO; METF850T PO; OMEP20CA16 PO; TICA90TA PO
[2017-03-14 10:12] VITALS: Ht 157.5 cm; Wt 124.8 kg
[2017-03-14] MEDS ORDERED: CLON-379 PO (11:55)
[2017-03-14] MEDS ORDERED: DOCU-159 PO (11:57)
[2017-03-14] MEDS ORDERED: TICA90TA PO (11:57)
[2017-03-14] MEDS ORDERED: CARV6.25 PO (11:57)
[2017-03-14] MEDS ORDERED: FER325 PO (11:58)
[2017-03-14] MEDS ORDERED: DOXY50TA2 PO (11:58)
[2017-03-14] MEDS ORDERED: hydrALAzine 20 MG INJ IV ONE (12:00)
[2017-03-14] MEDS ORDERED: GLIM4TAB PO (12:03)
[2017-03-14] MEDS ORDERED: ATOR40TA68 PO (12:03)
[2017-03-14] MEDS ORDERED: KETOROLAC 30 MG INJ IV STA (13:00)
[2017-03-14] MEDS ORDERED: LABETALOL HCL 20MG INJ IV ONE (13:00)
--- NOTE | 2017-03-14 13:09 | ERD ---
ER Documentation Chief Complaint Chief Complaint Per patient he had elevated BP HPI This is a very pleasant 61-year-old male that presents to the emergency department with elevated blood pressure. The patient has a history of myocardial ischemia with 5 cardiac stents placed several years prior to arrival. He has known history of hypertension and indicates that just prior to arrival he had been taking his blood pressure for routine checkup at home. The systolic was greater than 180. He said he did not have a headache and denied any chest pain or pressure that radiated to the neck arm back or jaw. He did not express any hemoptysis hematemesis or melanotic stools but did feel nauseous with no abdominal pain. Indicates he has been compliant with all of his antihypertensive medications. He has no shortness of breath at rest or exertion. ROS All systems reviewed and are negative except as per history of present illness. Medications Home Meds Active Scripts Clonidine Hcl* (Clonidine Hcl*) 0.1 Mg Tab, 0.1 MG PO Q6 Y for ELEVATED BLOOD PRESSURE, #10 TAB Take one tablet PO 0.1mg Q6 PRN for elevated systolic blood pressure greater then 150mmHG Prov:ERIC DANIELSON 03/14/17 Aspirin (Aspirin) 81 Mg Chew, 81 MG PO DAILY for 90 Days, TAB Prov:RAMIN GONZALEZ 10/28/16 Reported Medications Atorvastatin* (Atorvastatin*) 40 Mg Tablet, 40 MG PO QHS, #30 TAB 03/14/17 Glimepiride* (Glimepiride*) 4 Mg Tablet, 4 MG PO BID, TAB 03/14/17 Doxycycline Monohydrate* (Doxycycline Monohydrate*) 50 Mg Tablet, 50 MG PO BID, TAB 03/14/17 Ferrous Sulfate* (Ferrous Sulfate*) 325 Mg Tabec, 325 MG PO DAILY, TAB 03/14/17 Docusate Sodium* (Docusate Sodium*) 100 Mg Capsule, 100 MG PO BID, #60 CAP 03/14/17 Carvedilol* (Coreg*) 6.25 Mg Tablet, 6.25 MG PO BID, #60 TAB 03/14/17 Ticagrelor* (Brilinta*) 90 Mg Tablet, 90 MG PO Q12, TAB 03/14/17 Glipizide* (Glipizide*) 5 Mg Tablet, 5 MG PO DAILY, TAB 10/26/16 Metformin Hcl* (Metformin Hcl*) 850 Mg Tablet, 850 MG PO WITH BREAKFAST DINNE, TAB 10/26/16 Omeprazole* (Omeprazole*) 20 Mg Capsule.dr, 20 MG PO DAILY 10/26/16 Docusate Sodium* (Colace*) 100 Mg Capsule, 100 MG PO BID 10/26/16 Amlodipine Besylate* (Amlodipine Besylate*) 5 Mg Tablet, 5 MG PO DAILY, #30 TAB 10/26/16 Discontinued Scripts Lisinopril* (Lisinopril*) 20 Mg Tablet, 20 MG PO BID for 30 Days, TAB Prov:REGIDORRAMIN 10/28/16 Ticagrelor* (Brilinta*) 90 Mg Tablet, 90 MG PO BID for 90 Days, TAB Prov:REGIDORRAMIN 10/28/16 Hydralazine Hcl* (Hydralazine Hcl*) 25 Mg Tab, 25 MG PO DAILY for 30 Days, TAB Prov:REGIDORRAMIN 10/28/16 Ferrous Sulfate* (Ferrous Sulfate*) 325 Mg Tabec, 325 MG PO TID for 30 Days, TAB Prov:REGIDOR,RAMIN 10/28/16 Atorvastatin* (Atorvastatin*) 40 Mg Tablet, 40 MG PO HS for 30 Days, TAB Prov:REGIDORRAMIN 10/28/16 Carvedilol* (Coreg*) 6.25 Mg Tablet, 6.25 MG PO BID, #60 TAB Prov:REGIDORRAMIN 10/28/16 Allergies Allergies: Coded Allergies: No Known Allergy (Unverified , 10/25/16) PMhx/Soc History of Surgery: Yes (RIGHT KNEE SX,STENT,HERNIA REPAIR) Anesthesia Reaction: No Hx Neurological Disorder: No Hx Respiratory Disorders: No Hx Cardiac Disorders: Yes (HX OF HEART ATTACK 2010,CAD, HTN) Hx Psychiatric Problems: No Hx Miscellaneous Medical Probl: No (HIGH CHOLESTEROL, DM ) Hx Alcohol Use: No Hx Substance Use: No Hx Tobacco Use: Yes (CIGARETTE QUIT ) Smoking Status: Former smoker Physical Exam Vitals Vital Signs Date Time Temp Pulse Resp B/P Pulse Ox O2 Delivery O2 Flow Rate FiO2 03/14/17 12:58 98.6 65 20 192/94 97 Room Air 03/14/17 11:42 98.6 63 20 194/97 100 Room Air 03/14/17 10:12 98.6 69 20 183/90 98 Physical Exam Constitutional:Well-developed. Well-nourished. HEENT:Normocephalic. Atraumatic.Pupils were equal round reactive to light. Moist mucous membranes.No tonsillar exudates. Fundoscopy exam shows sharp optic disks and venous pulsations were present Neck: No nuchal rigidity. No lymphadenopathy. No posterior cervical spine tenderness or step-offs. Respiratory: Not using accessory muscles of respiration.Lungs were clear to auscultation bilaterally. No rhonchi. No rales. No wheezing. Cardiovascular: Regular rate regular rhythm.No murmurs. No rubs were appreciated.S1, S2 normal. Distal pulses are palpable 2+ bilaterally. GI: Abdomen was soft. Nontender. Non Distended. No pulsatile abdominal masses or bruits. No rebound. No guarding. Bowel sounds were present and normal. Muscle skeletal: Full range of motion of both the upper and lower extremities bilaterally.Normal muscle tone.No assymetrical calf tenderness or swelling. Skin: No petechia, no purpura. No lesions on the palms or the soles of the feet. No maculopapular rash. NEURO: Patient was alert, awake, orientated x3.No facial droop. Gait observed and normal with no ataxia.Speech had regular rate and rhythm. No focal neurological deficits. Result Diagram: 03/14/17 1148 03/14/17 1148 Results 24 hrs Laboratory Tests Test 03/14/17 11:48 White Blood Count 4.010^3/ul Red Blood Count 5.6710^6/ul Hemoglobin 16.0g/dl Hematocrit 47.7% Mean Corpuscular Volume 84.1fl Mean Corpuscular Hemoglobin 28.2pg Mean Corpuscular Hemoglobin Concent 33.5g/dl Red Cell Distribution Width 12.9% Platelet Count 70952^3/UL Mean Platelet Volume 9.3fl Neutrophils % 59.4% Lymphocytes % 29.1% Monocytes % 8.0% Eosinophils % 2.5% Basophils % 0.5% Nucleated Red Blood Cells % 0.0/100WBC Neutrophils # 2.410^3/ul Lymphocytes # 1.210^3/ul Monocytes # 0.310^3/ul Eosinophils # 0.110^3/ul Basophils # 0.010^3/ul Nucleated Red Blood Cells # 0.010^3/ul Prothrombin Time 12.5Sec Prothrombin Time Ratio 1.0 INR International Normalized Ratio 0.93 Activated Partial Thromboplast Time 33.8Sec Sodium Level 142mmol/L Potassium Level 4.2mmol/L Chloride Level 103mmol/L Carbon Dioxide Level 26mmol/L Anion Gap 17 Blood Urea Nitrogen 15mg/dl Creatinine 0.94mg/dl Glucose Level 220mg/dl Calcium Level 9.1mg/dl Total Bilirubin 0.7mg/dl Direct Bilirubin 0.00mg/dl Indirect Bilirubin 0.7mg/dl Aspartate Amino Transf (AST/SGOT) 31IU/L Alanine Aminotransferase (ALT/SGPT) 53IU/L Alkaline Phosphatase 69IU/L Creatine Kinase 70IU/L Creatine Kinase Index 1.0 Creatinine Kinase MB (Mass) 0.70ng/ml Troponin I < 0.012ng/ml B-Type Natriuretic Peptide 108PG/ML Total Protein 7.8g/dl Albumin 4.5g/dl Globulin 3.30g/dl Albumin/Globulin Ratio 1.36 Current Medications Medications (Trade) Dose Ordered Sig/Maureen Route PRN Reason Start Time Stop Time Status Last Admin Dose Admin Hydralazine HCl (Apresoline) 10 mg ONCE ONCE IV 03/14/17 12:00 03/14/17 12:01 DC 03/14/17 12:04 Clonidine (Catapres) 0.1 mg ONCE ONCE PO 03/14/17 13:00 03/14/17 13:03 DC Labetalol HCl (Labetalol) 10 mg ONCE ONCE IV 03/14/17 13:00 03/14/17 13:03 DC Ketorolac Tromethamine (Toradol) 30 mg ONCE STAT IV 03/14/17 13:00 03/14/17 13:03 DC Procedures/MDM This patient presented to the emergency department with severely elevated blood pressure. My differential diagnosis included but was not limited to conditions that could end-organ damage such as acute coronary syndrome, acute pulmonary edema, aortic dissection, subarachnoid hemorrhage, intracerebral hemorrhage, cerebral infarction, withdrawal syndromes from beta blockers, or states of catecholamine excess such as pheochromocytoma or drug intoxication. Ancillary lab work was obtained. There was no elevation in the BUN and creatinine to suggest acute renal failure. Electrolytes were normal. Cardiac enzyme was normal and the 12 lead EKG showed no acute ischemic changes or left ventricular hypertrophy. 12 Lead EKG tracing ordered and reviewed by myself showed: Normal sinus rhythm of 62 bpm and no arrhythmia. IN interval prolonged platelet 228 ms first-degree AV block QRS duration normal. No ST segment elevation No ST segment depression. No changes consistent with acute ischemia. Given that the patient had an absence of cerebral, ocular, cardiac or renal damage the hypertensive urgency was treated with oral and IV agents in the emergency room with improvement of the patient's blood pressure. The patient likely appeared to be complaint with primary care physician and will follow up with their PCP in the next 24-48 hours. They were instructed to return to the emergency department at anytime if there is any worsening of their condition such as development of chest pain or a headache. They were instructed to resume previous medication regimen or initiate a suitable medication regimen under care of the PCP to enable proper monitoring for drug reactions. The patient was also informed on the adverse side effects and adverse drug interactions of the medications prescribed to them by myself. The patient gave informed consent to the prescription of the new medication. Departure Diagnosis: Primary Impression: Hypertensive urgency Condition: Fair Patient Instructions: Hypertension, Established, Out Of Control Referrals: KATIE CARVER (PCP) ERIC DANIELSON Mar 14, 2017 13:09
[2017-03-14 13:15] VITALS: TEMP 98.6
[2017-03-14] MEDS ORDERED: LORAZEPAM 2 MG INJ IV ONE (14:00)
[2017-03-14] MEDS ORDERED: LORA1TAB PO (14:08)
--- NOTE | 2017-03-14 14:22 | RADRPT ---
PROCEDURE: XR Chest. CLINICAL INDICATION: Shortness of breath TECHNIQUE: Single frontal view of the chest was obtained COMPARISON: None FINDINGS: No pleural effusion or pneumothorax. No consolidation. Top normal cardiac silhouette. Calcified aortic arch suggestive of chronic systemic hypertension. No acute osseous abnormality. IMPRESSION: No acute cardiopulmonary disease. RPTAT: EE Adina Cedillo Physician Date Time Electronically viewed and signed by Adina Cedillo Physician on 03/14/2017 14:22 /
[2017-03-14] MEDS ORDERED: NICARDipine HCL 30 MG CAPSULE PO ONE (14:30)
[2017-03-14 14:46] VITALS: BP 143/85; PULSE 67; RESP 20
== END 2017-03-14 14:49 | disposition home or self-care (01) ==
LOC: E/R 10:07
DX: I16.0 Hypertensive urgency (principal); I25.10 Atherosclerotic heart disease of native coronary artery without angina pectoris; E11.9 Type 2 diabetes mellitus without complications; R06.02 Shortness of breath; Z79.82 Long term (current) use of aspirin; Z79.84 Long term (current) use of oral hypoglycemic drugs; Z87.891 Personal history of nicotine dependence
CPT/HCPCS: 71010; 80053; 82550; 82553; 83880; 84484; 85025; 85610; 85730; 93005; 96374; 96375; J0360; J1885; J2060; Z7502; Z7610

== ENCOUNTER 2017-04-21 13:04 | Emergency (ER) | payer OTHER ==
[~2017-04-21] VITALS: Ht 185.4 cm; Wt 123.9 kg
[~2017-04-21 13:04] MED LIST changes: +CLON-379 PO; +DOCU-159 PO; +DOXY50TA2 PO; +GLIM4TAB PO; -HYDR-3671 PO; -LISI20TA11 PO; +LORA1TAB PO
[2017-04-21 13:07] VITALS: Ht 185.4 cm; Wt 123.9 kg
--- NOTE | 2017-04-21 14:40 | ERD ---
ER Documentation Chief Complaint Chief Complaint htn, linares, sore throat, neck pain x week HPI Pt present to ED for hypertension, suboptimal control, symptomatic for headache described as temporal radiating to neck. Patient denies chest pain, palpitations, shortness of breath, or dizziness. Patient denies hemoptysis hematemesis or melanotic stools. Patient reports that he was seen here in emergency department 03/14/17, for hypertension suboptimal control, patient had full evaluation at that time was instructed to follow-up with his primary care physician. Patient reports he does not like his primary care physician is very unhappy with his insurance goes on a long rant about how long it takes to get an appointment. Patient reports physician did adjust 1 of his blood pressure medications but states "it is not working". Past medical history includes coronary artery disease with PTCA, 5 stent placement, patient reports taking aspirin daily, diabetes, and hyperlipidemia..Patient reports blood pressure systolic in the 200s, and diastolics in the 100s at home prior to arrival in emergency department. ROS All systems reviewed and are negative except as per history of present illness. Medications Home Meds Active Scripts Azithromycin* (Zithromax*) 250 Mg Tablet, 250 MG PO .ZPACK DIRECTED, #6 TAB TAKE 500 MG (2 TABS) THE FIRST DAY THEN 250 MG (1 TAB) DAYS 2-5 Prov:BRUNO DEXTER 04/21/17 Lorazepam* (Lorazepam*) 1 Mg Tablet, 1 MG PO Q8H Y for ANXIETY, #20 TAB Prov:ERIC DANIELSON 03/14/17 Clonidine Hcl* (Clonidine Hcl*) 0.1 Mg Tab, 0.1 MG PO Q6 Y for ELEVATED BLOOD PRESSURE, #10 TAB Take one tablet PO 0.1mg Q6 PRN for elevated systolic blood pressure greater then 150mmHG Prov:ERIC DANIELSON 03/14/17 Aspirin (Aspirin) 81 Mg Chew, 81 MG PO DAILY for 90 Days, TAB Prov:RAMIN GONZALEZ 10/28/16 Reported Medications Atorvastatin* (Atorvastatin*) 40 Mg Tablet, 40 MG PO QHS, #30 TAB 03/14/17 Glimepiride* (Glimepiride*) 4 Mg Tablet, 4 MG PO BID, TAB 03/14/17 Doxycycline Monohydrate* (Doxycycline Monohydrate*) 50 Mg Tablet, 50 MG PO BID, TAB 03/14/17 Ferrous Sulfate* (Ferrous Sulfate*) 325 Mg Tabec, 325 MG PO DAILY, TAB 03/14/17 Docusate Sodium* (Docusate Sodium*) 100 Mg Capsule, 100 MG PO BID, #60 CAP 03/14/17 Carvedilol* (Coreg*) 6.25 Mg Tablet, 6.25 MG PO BID, #60 TAB 03/14/17 Ticagrelor* (Brilinta*) 90 Mg Tablet, 90 MG PO Q12, TAB 03/14/17 Glipizide* (Glipizide*) 5 Mg Tablet, 5 MG PO DAILY, TAB 10/26/16 Metformin Hcl* (Metformin Hcl*) 850 Mg Tablet, 850 MG PO WITH BREAKFAST DINNE, TAB 10/26/16 Omeprazole* (Omeprazole*) 20 Mg Capsule.dr, 20 MG PO DAILY 10/26/16 Docusate Sodium* (Colace*) 100 Mg Capsule, 100 MG PO BID 10/26/16 Amlodipine Besylate* (Amlodipine Besylate*) 5 Mg Tablet, 5 MG PO DAILY, #30 TAB 10/26/16 Allergies Allergies: Coded Allergies: No Known Allergy (Unverified , 10/25/16) PMhx/Soc History of Surgery: Yes (RIGHT KNEE SX,STENT,HERNIA REPAIR) Anesthesia Reaction: No Hx Neurological Disorder: No Hx Respiratory Disorders: No Hx Cardiac Disorders: Yes (HX OF HEART ATTACK 2009,CAD, HTN) Hx Psychiatric Problems: No Hx Miscellaneous Medical Probl: No (HIGH CHOLESTEROL, DM ) Hx Alcohol Use: No Hx Substance Use: No Hx Tobacco Use: Yes (CIGARETTE QUIT ) Physical Exam Vitals Vital Signs Date Time Temp Pulse Resp B/P Pulse Ox O2 Delivery O2 Flow Rate FiO2 04/21/17 13:07 97.8 77 18 182/88 97 Vitals stable, blood pressure noted to be 182/88, a chart review was done, this is the blood pressure patient was discharged home with IN March 14, 2017. Physical Exam Const: Obese, well-nourished, well-hydrated 61-year-old male patient no acute distress Eyes: Normal Conjunctiva, PERRLA, EOMI ENT: Normal External Ears, Nose and Mouth. Neck: Full range of motion.. No JVD Resp: Respirations even and unlabored, clear to auscultation bilaterally no rales wheezes or rhonchi Cardio: S1-S2, no S3-S4 regular rate and rhythm, no murmurs Abd: Soft, non tender, non distended. No epigastric tenderness Skin: No petechiae or rashes Ext: No cyanosis, or edema Neuro: Alert and oriented Face: EOMI, face and pharynx with normal sensation and function, smile is symmetric, tongue is midline Motor: Normal strength throughout, bilateral hand asset protection manager strong and equal Sensation: Normal sensation throughout Speech: Clear, easy to understand Cerebel: Normal coordination Normal gait Normal finger to nose No pronator drift Psych: Normal Mood and Affect Result Diagram: 04/21/17 1500 04/21/17 1500 Results 24 hrs Laboratory Tests Test 04/21/17 15:00 White Blood Count 5.410^3/ul Red Blood Count 5.4910^6/ul Hemoglobin 15.7g/dl Hematocrit 46.1% Mean Corpuscular Volume 84.0fl Mean Corpuscular Hemoglobin 28.6pg Mean Corpuscular Hemoglobin Concent 34.1g/dl Red Cell Distribution Width 12.9% Platelet Count 15231^3/UL Mean Platelet Volume 9.2fl Neutrophils % 64.7% Lymphocytes % 24.1% Monocytes % 7.3% Eosinophils % 2.6% Basophils % 0.6% Nucleated Red Blood Cells % 0.0/100WBC Neutrophils # 3.510^3/ul Lymphocytes # 1.310^3/ul Monocytes # 0.410^3/ul Eosinophils # 0.110^3/ul Basophils # 0.010^3/ul Nucleated Red Blood Cells # 0.010^3/ul Sodium Level 140mmol/L Potassium Level 4.4mmol/L Chloride Level 101mmol/L Carbon Dioxide Level 29mmol/L Anion Gap 14 Blood Urea Nitrogen 14mg/dl Creatinine 1.00mg/dl Glucose Level 212mg/dl Calcium Level 9.6mg/dl Troponin I < 0.012ng/ml Current Medications Medications (Trade) Dose Ordered Sig/Maureen Route PRN Reason Start Time Stop Time Status Last Admin Dose Admin Acetaminophen/ Hydrocodone Bitart ([place] (5/325)) 1 tab ONCE ONCE PO 04/21/17 15:00 04/21/17 15:01 DC 04/21/17 15:03 Interpretation text CBC shows no evidence of hemorrhage or infection Chemistry shows no evidence of significant electrolyte abnormalities or renal insufficiency Cardiac biomarkers show no evidence of acute myocardial injury or coronary ischemia Procedures/MDM EKG read by Dr. Acevedo Rate/Rhythm: Regular rate and rhythm at a rate of ventricular rate of 66 bpm, first-degree AV block Intervals: Normal Impression: No evidence of ischemia or arrhythmia Chart review: This is unchanged from EKG done on 03/15/17 PROCEDURE: XR Chest. CLINICAL INDICATION: Shortness of breath TECHNIQUE: Single portable view of the chest was obtained COMPARISON: No priors for comparison FINDINGS: The trachea is midline. The cardiac silhouette and pulmonary vascularity are within normal limits. There is opacification overlying the right hilum. The costophrenic angles are sharp. IMPRESSION: 1. Prominent right hilum, which may represent focal infiltrate or lymphadenopathy. Consider follow-up CT scan of the chest. Electronically viewed and signed by Physician Ivonne on 04/21/2017 15:40 This 61-year-old male patient presents to emergency department for treatment of his hypertension, hypertension is suboptimally controlled, patient reports headache, states that he is not happy with his primary care physician, the chart review details that he was seen here treated and had a full evaluation done at that time, patient states he has called his primary physician , has not seen him, reports that one of his blood pressure medications has been increased but he does not know which one, patient currently is on aspirin, Norvasc, and Coreg in addition to multiple diabetic medications please, please refer to patient's medications. I spent 15-20 minutes with patient explaining hypertension, primary and secondary causes, lifestyle modifications including even 10 pounds weight loss, walking even 20 minutes daily or even breaking time up to 10 minutes in the morning, 10 minutes in the evening can reduce his cardiovascular risk tremendously. Patient is Colombian-speaking in room with his son providing translation. Patient's son reports that his father has been unwilling to do lifestyle modifications at this point. Emergency room course includes history and physical exam, diagnostic testing including CK-MB, EKG, and BMP. Patient was given a [place] for headache symptoms, this medication was chosen because of interactions with so many routine medications documented. Patient told it was imperative that he follow-up with a primary physician if he does not care for this primary care physician. I have low suspicion at this time for acute MN, cute coronary syndromes, pulmonary embolism, aortic dissection, CVA. Patient serology unremarkable for infection, hemorrhage, electrolyte imbalance, cardiac biomarkers negative for evidence of injury, chest x-ray positive for right pulmonary infiltrate, this is a new finding not apparent on chest x-ray that was done 03/15/1917. Plan to treat patient for a pulmonary infiltrate/pneumonia with azithromycin, patient's blood pressure has remained stable throughout his stay in emergency department today, remains 183/ 90, 186/90. Please note that this is the same blood pressure that patient was discharged with from Main ED on 03/14/1917. Patient instructed to call primary physician schedule an appointment, his blood pressure is not under control, continue to take all medications as prescribed, start azithromycin 2 pills today , 1 pill day 2 through 4. Decrease sodium and fatty foods from diet, increase activity even walking, return to emergency department for chest pain, shortness of breath, palpitations, or dizziness. Patient is alert, smiling, speech is clear, reports feeling improvement on discharge from emergency department today. This case discussed with supervising physician Dr. Acevedo Departure Diagnosis: Primary Impression: Hypertension Hypertension type: unspecified Qualified Code: I10 - Hypertension, unspecified type Additional Impression: Pulmonary infiltrate in right lung on CXR Condition: Serious Patient Instructions: High Blood Pressure (Hypertension), Pneumonia (Adult) Additional Instructions: Thank you for for coming to [facility] for your care today. Please ask your nurse or provider if you have questions about your care today and do not leave until all your questions have been answered. Please use any medications given as directed and follow-up with your doctor (or the doctor you were referred to) in the next 2-3 days. If you do not have a primary care doctor you may follow up at the [facility] (listed below). You may also use motrin and tylenol as needed for fever and/or pain unless instructed otherwise by your provider or nurse. Indications for more urgent follow-up have been discussed, but you may return to the Emergency Department at ANY time for any worrisome or worsening symptoms. If you have abdominal pain, please know that no test or exam you received is perfect and you should follow up within 8 hours for continued pain. If you had any imaging studies today, such as an X-Ray or CT Scan, these studies will be reviewed later by a radiologist. You will be called if there are important findings that were not identified today, so make sure the contact information you provided at registration is correct. If you received any narcotic pain control medicine today, such as Vicodin, Morphine or Dilaudid, your coordination and judgment may be affected for a number of hours. Please do not drive or operate heavy machinery, and you may want someone to assist you at home. If you were given a prescription for narcotic medication, be aware that it is very addictive- use sparingly and only if necessary. BRUNO DEXTER Apr 21, 2017 14:40
[2017-04-21] MEDS ORDERED: HYDROCODONE/APAP (5/325) TAB PO ONE (15:00)
[2017-04-21 15:16] LABS: BASOPHILS % 0.6 % (0.0-2.0); EOSINOPHILS # 0.1 10^3/ul (0.0-0.5); EOSINOPHILS % 2.6 % (0.0-7.0); HEMATOCRIT 46.1 % (42.0-52.0); HEMOGLOBIN 15.7 g/dl (14.0-18.0); LYMPHOCYTES # 1.3 10^3/ul (0.8-2.9); LYMPHOCYTES % 24.1 % (15.0-51.0); MEAN CORPUSCULAR HEMOGLOBIN 28.6 pg (29.0-33.0); MEAN CORPUSCULAR HGB CONC 34.1 g/dl (32.0-37.0); MEAN PLATELET VOLUME 9.2 fl (7.4-10.4); MONOCYTE # 0.4 10^3/ul (0.3-0.9); MONOCYTES % 7.3 % (0.0-11.0); NEUTROPHIL # 3.5 10^3/ul (1.6-7.5); NEUTROPHILS % 64.7 % (39.0-77.0); PLATELET COUNT 180 10^3/UL (140-415); RED BLOOD COUNT 5.49 10^6/ul (4.70-6.10); RED CELL DISTRIBUTION WIDTH 12.9 % (11.5-14.5); WHITE BLOOD COUNT 5.4 10^3/ul (4.8-10.8)
[2017-04-21 15:32] LABS: ANION GAP 14 (8-16); BLOOD UREA NITROGEN 14 mg/dl (7-20); CALCIUM 9.6 mg/dl (8.4-10.2); CARBON DIOXIDE 29 mmol/L (21-31); CHLORIDE 101 mmol/L (97-110); GLUCOSE 212 mg/dl (70-220); POTASSIUM 4.4 mmol/L (3.5-5.1); SODIUM 140 mmol/L (135-144)
--- NOTE | 2017-04-21 15:40 | RADRPT ---
PROCEDURE: XR Chest. CLINICAL INDICATION: Shortness of breath TECHNIQUE: Single portable view of the chest was obtained COMPARISON: No priors for comparison FINDINGS: The trachea is midline. The cardiac silhouette and pulmonary vascularity are within normal limits. T here is opacification overlying the right hilum. The costophrenic angles are sharp. IMPRESSION: 1. Prominent right hilum, which may represent focal infiltrate or lymphadenopathy. Consider follow-u p CT scan of the chest. RPTAT: AAPP Physician Ivonne Date Time Electronically viewed and signed by Physician Ivonne on 04/21/2017 15:40 ADIS/
[2017-04-21 15:49] LABS: TROPONIN-I < 0.012 ng/ml (0.00-0.12)
[2017-04-21] MEDS ORDERED: AZIT250T94 PO (16:56)
[2017-04-21 17:30] VITALS: BP 178/98; PULSE 78; RESP 18
== END 2017-04-21 17:30 | disposition home or self-care (01) ==
LOC: FTE 13:04
DX: I10 Essential (primary) hypertension (principal); R91.8 Other nonspecific abnormal finding of lung field; I25.10 Atherosclerotic heart disease of native coronary artery without angina pectoris; E11.9 Type 2 diabetes mellitus without complications; Z79.82 Long term (current) use of aspirin; Z87.891 Personal history of nicotine dependence; Z79.84 Long term (current) use of oral hypoglycemic drugs
CPT/HCPCS: 71010; 80048; 84484; 85025; 93005; Z7502; Z7610